=== PATIENT | male | born 1955 | race Caucasian/White ===

== ENCOUNTER 2017-09-01 08:46 | Observation (INO) ==
--- NOTE | 2017-09-01 09:03 | Emergency Department Note ---
Disposition Clinical Impression: Chest pain Qualifiers: Chest pain type: other chest pain Qualified Code(s): R07.89 - Other chest pain Disposition: Admitted As Inpatient Condition: Good Time of Disposition: 11:57 General Adult HPI - General Chief complaint: ED Back Pain/Injury Stated complaint: chest pain Time Seen by Provider: 09/01/17 08:55 Source: patient, EMS Mode of arrival: EMS Limitations: no limitations Nursing Notes Reviewed: Yes Vital Signs Reviewed: Yes - History of Present Illness HPI Narrative: 62-year-old male, Beata the emergency department with complaint of back pain with radiation to the left chest. He had associated diaphoresis. The patient states he woke up with this pain this morning. It has not gotten worse with the state patient states that while he was working just became concerned about after talking to the platelet nurse. They performed an EKG which revealed normal sinus rhythm. At that time the patient was administered 325 mg aspirin and was attempted to give nitroglycerin but he refused. The patient has no previous history of PR, hypertension. No previous cardiac stents or cardiac catheter. The patient denies any other complaints at this time. He is resting comfortably in the room. The patient does have a pleuritic type chest pain but states it hurts worse with taking a deep breath. Pain Scale: 5 - Related Data Home Medications Medication Instructions Recorded Confirmed Ezetimibe/Simvastatin [Vytorin 1 tab PO HS 09/01/17 09/01/17 10-10 mg Tablet] Allergies Allergy/AdvReac Type Severity Reaction Status Date / Time Sulfa (Sulfonamide Allergy Rash Verified 09/01/17 13:30 Antibiotics) morphine AdvReac Agitated Verified 09/01/17 13:30 All systems ED: reviewed and negative except as stated. Constitutional: Denies: fever, chills, weakness ENT ED: Denies: congestion Cardiovascular: Reports: chest pain. Denies: dyspnea on exertion, edema, syncope Respiratory: Denies: dyspnea Gastrointestinal: Denies: abdominal pain, nausea, vomiting Genitourinary: Denies: urgency, dysuria Musculoskeletal: Reports: back pain. Denies: neck pain, arthralgia, myalgia Integumentary: Denies: rash Neurological: Denies: headache, weakness, numbness, paresthesias Past Medical History - Past Medical History Attestation: Yes The following information was validated with the patient. Source: patient Medical history: Reports: GERD, hyperlipidemia, kidney stones Surgical history: Reports: cholecystectomy, other Psychiatric history: Reports: no psych history - Social History Smoking Status: Former smoker Smokeless Tobacco Status: No Alcohol use: Reports: none Drug use: Reports: none Physical Exam - General Limitations: no limitations General appearance: alert, in no apparent distress - Head Head exam: atraumatic, normocephalic, normal inspection - Eye Eye exam: Present: normal appearance, PERRL, EOMI - ENT ENT exam: normal exam, normal oropharynx, mucous membranes moist - Neck Neck exam: Present: normal inspection, full ROM, trachea midline - Chest Chest inspection: Present: normal inspection, symmetric chest wall rise - Respiratory Respiratory exam: Present: normal lung sounds bilaterally - Cardiovascular Cardiovascular exam: Present: regular rate, normal rhythm, normal heart sounds - Abdominal Exam Abdominal exam: Present: soft, Non-Tender. Absent: tenderness, distention, guarding, rebound, rigidity - Extremities Exam Extremities exam: Present: normal inspection, full ROM. Absent: tenderness, pedal edema - Back Exam Back exam: Present: normal inspection, full ROM. Absent: tenderness - Neurological Exam Neurological exam: Present: alert, oriented X3 - Skin Skin exam: Present: warm, dry, intact, normal color Course Vital Signs Temperature 97.6 F 09/01/17 08:48 Pulse Rate 71 09/01/17 08:48 Respiratory Rate 16 09/01/17 08:48 Blood Pressure 181/111 09/01/17 08:48 O2 Sat by Pulse Oximetry 95 09/01/17 08:48 Temperature 97.6 F 09/01/17 08:48 Pulse Rate 64 09/01/17 11:36 Respiratory Rate 13 09/01/17 13:38 Blood Pressure 153/92 09/01/17 13:38 O2 Sat by Pulse Oximetry 96 09/01/17 11:36 Oxygen Delivery Oxygen Delivery Room Air Medical Decision Making - MDM Narrative Medical decision making narrative: Patient's workup in the emergency department demonstrates no acute process. Given the patient's symptoms as well as negative workup we will admit the patient to the hospital to likely trending troponins. The patient was made aware and agrees to plan. No further questions or concerns. CTA of the patient 's chest abdomen pelvis demonstrates no acute process. Patient's troponin is negative and EKG demonstrates no changes that are noted. Patient has mild discomfort at this time. We will admit the patient at this time. Accepted by Dr. Nicole. - Lab Data Lab results reviewed: Yes I reviewed the patient's lab results. Result diagrams: 09/01/17 09:03 09/01/17 09:03 Lab Results 09/01/17 09/01/17 09/01/17 Range/Units 09:03 09:03 09:03 WBC 6.7 (4.3-11.1) K/mcL RBC 5.19 (4.19-5.50) M/mcL Hgb 15.1 (12.9-16.9) g/dL Hct 44.8 (37.5-50.1) % MCV 86.3 (83.0-100.0) fL MCH 29.1 (28.0-33.3) pg MCHC 33.7 (31.6-35.5) g/dL RDW 13.2 (11.5-14.5) % Plt Count 262 (140-400) K/mcL MPV 9.8 (9.4-12.4) fL Immature Gran % 0.3 (0-4) % Seg Neutrophils % 63.7 % Lymphocytes % 23.3 % Monocytes % 9.2 % Eosinophils % 2.2 % Basophils % 1.3 % Neutrophils # 4.3 (1.6-8.9) K/mcL Lymphocytes # 1.6 (0.6-4.6) K/mcL Monocytes # 0.6 (0.0-1.3) K/mcL Eosinophils # 0.2 (0.0-0.6) K/mcL Basophils # 0.1 (0.0-0.2) K/mcL APTT 32.2 (26.0-36.0) Seconds D-Dimer 378 (0-500) ng/mLFEU Sodium 138 (136-145) mEq/L Potassium 3.9 (3.5-5.1) mEq/L Chloride 106 (98-107) mEq/L Carbon Dioxide 23 (23-29) mEq/L BUN 18 (8-23) mg/dL Creatinine 0.98 (0.70-1.30) mg/dL Est GFR ( Amer) > 60 (> 60) Est GFR (Non-Af Amer) > 60 (> 60) BUN/Creatinine Ratio 18 (6-26) Glucose 96 (70-105) mg/dL Calculated Osmolality 288 (280-300) Calcium 9.7 (8.6-10.3) mg/dL Troponin I < 0.03 (< 0.04) ng/mL - Radiology Data Radiology results reviewed: Yes I reviewed the patient's radiology results. Chest X-Ray 09/01/17 08:55 IMPRESSION: No acute cardiopulmonary disease. D/ / Mann Burch MD / Mann Burch MD Interpreting Provider: Mann Burch MD Chest CTA 09/01/17 09:31 IMPRESSION: No acute abnormality in the chest, abdomen or pelvis. No aortic dissection. D/ / Pedro Cook MD / Pedro Cook MD Interpreting Provider: Pedro Cook MD Abdomen/Pelvis CTA 09/01/17 09:53 IMPRESSION: No acute abnormality in the chest, abdomen or pelvis. No aortic dissection. D/ / Pedro Cook MD / Pedro Cook MD Interpreting Provider: Pedro Cook MD - EKG Data EKG #1 EKG attestation: Yes I reviewed and interpreted this EKG. EKG results narrative: Heart rate 71 bpm. Normal sinus rhythm. No ST elevation or ST depression noted. EKG similar appearance EKG from 04/13/2004. No acute changes noted.
[2017-09-01 09:14] LABS: Basophils # 0.1 K/mcL (0.0-0.2); Basophils % 1.3 %; Eosinophils # 0.2 K/mcL (0.0-0.6); Eosinophils % 2.2 %; Hematocrit 44.8 % (37.5-50.1); Hemoglobin 15.1 g/dL (12.9-16.9); Immature Granulocytes % 0.3 % (0-4); Lymphocytes # 1.6 K/mcL (0.6-4.6); Lymphocytes % 23.3 %; Mean Corpuscular HGB Conc 33.7 g/dL (31.6-35.5); Mean Corpuscular Hemoglobin 29.1 pg (28.0-33.3); Mean Corpuscular Volume 86.3 fL (83.0-100.0); Mean Platelet Volume 9.8 fL (9.4-12.4); Monocytes # 0.6 K/mcL (0.0-1.3); Monocytes % 9.2 %; Neutrophils # 4.3 K/mcL (1.6-8.9); Platelet Count 262 K/mcL (140-400); Red Blood Count 5.19 M/mcL (4.19-5.50); Red Cell Distribution Width 13.2 % (11.5-14.5); Segmented Neutrophils % 63.7 %
[2017-09-01] MEDS ORDERED: Isovue-370 500 ML INFUS..BTL IV ONE ×2 (09:31→09:53)
--- NOTE | 2017-09-01 09:31 | Emergency Department Note ---
Disposition Clinical Impression: Chest pain Qualifiers: Chest pain type: unspecified Qualified Code(s): R07.9 - Chest pain, unspecified Disposition: Admitted As Inpatient Condition: Undetermined Referrals: Natasha Sylvester MD [Primary Care Provider] - Forms: ED Satisfaction Letter General Adult HPI - General Chief complaint: ED Back Pain/Injury Stated complaint: back pain, CP Time Seen by Provider: 09/01/17 08:55 Source: patient, EMS Mode of arrival: EMS Limitations: no limitations - History of Present Illness Pain Scale: 5 - Related Data Home Medications Medication Instructions Recorded Confirmed Ascorbate Calcium [Vitamin C] 500 mg PO DAILY 06/05/16 06/05/16 Duloxetine HCl [Cymbalta] 60 mg PO DAILY 06/05/16 06/05/16 Ezetimibe/Simvastatin [Vytorin 1 each PO DAILY 06/05/16 06/05/16 10-10 mg Tablet] Multivit-Min/FA/Lycopen/Lutein 1 each PO DAILY 06/05/16 06/05/16 [Centrum Silver Men Tablet] Previous Rx's Medication Instructions Recorded Docusate [Colace] 100 mg PO BID #60 capsule 06/05/16 HYDROmorphone [Dilaudid] 2 mg PO Q4HR PRN #20 tablet 06/05/16 Ketorolac [Toradol] 10 mg PO Q6HR #20 tablet 06/05/16 Allergies Allergy/AdvReac Type Severity Reaction Status Date / Time morphine Allergy Agitated Verified 06/05/16 10:53 Sulfa (Sulfonamide Allergy Rash Verified 06/05/16 10:53 Antibiotics) Constitutional: Denies: fever, chills, weakness ENT ED: Denies: congestion Cardiovascular: Reports: chest pain. Denies: dyspnea on exertion, edema, syncope Respiratory: Denies: dyspnea Gastrointestinal: Denies: abdominal pain, nausea, vomiting Genitourinary: Denies: urgency, dysuria Musculoskeletal: Reports: back pain. Denies: neck pain, arthralgia, myalgia Integumentary: Denies: rash Neurological: Denies: headache, weakness, numbness, paresthesias Past Medical History - Past Medical History Medical history: Reports: GERD, hyperlipidemia, kidney stones Surgical history: Reports: cholecystectomy, other Psychiatric history: Reports: no psych history - Social History Smoking Status: Former smoker Smokeless Tobacco Status: No Alcohol use: Reports: none Drug use: Reports: none Physical Exam - General Limitations: no limitations General appearance: alert, in no apparent distress Course Vital Signs Temperature 97.6 F 09/01/17 08:48 Pulse Rate 71 09/01/17 08:48 Respiratory Rate 16 09/01/17 08:48 Blood Pressure 181/111 09/01/17 08:48 O2 Sat by Pulse Oximetry 95 09/01/17 08:48 Temperature 97.6 F 09/01/17 08:48 Pulse Rate 64 09/01/17 11:36 Respiratory Rate 16 09/01/17 11:36 Blood Pressure 156/97 09/01/17 11:36 O2 Sat by Pulse Oximetry 96 09/01/17 11:36 Oxygen Delivery Oxygen Delivery Room Air Medical Decision Making - Lab Data Result diagrams: 09/01/17 09:03 09/01/17 09:03 Lab Results 09/01/17 09/01/17 09/01/17 Range/Units 09:03 09:03 09:03 WBC 6.7 (4.3-11.1) K/mcL RBC 5.19 (4.19-5.50) M/mcL Hgb 15.1 (12.9-16.9) g/dL Hct 44.8 (37.5-50.1) % MCV 86.3 (83.0-100.0) fL MCH 29.1 (28.0-33.3) pg MCHC 33.7 (31.6-35.5) g/dL RDW 13.2 (11.5-14.5) % Plt Count 262 (140-400) K/mcL MPV 9.8 (9.4-12.4) fL Immature Gran % 0.3 (0-4) % Seg Neutrophils % 63.7 % Lymphocytes % 23.3 % Monocytes % 9.2 % Eosinophils % 2.2 % Basophils % 1.3 % Neutrophils # 4.3 (1.6-8.9) K/mcL Lymphocytes # 1.6 (0.6-4.6) K/mcL Monocytes # 0.6 (0.0-1.3) K/mcL Eosinophils # 0.2 (0.0-0.6) K/mcL Basophils # 0.1 (0.0-0.2) K/mcL APTT 32.2 (26.0-36.0) Seconds D-Dimer 378 (0-500) ng/mLFEU Sodium 138 (136-145) mEq/L Potassium 3.9 (3.5-5.1) mEq/L Chloride 106 (98-107) mEq/L Carbon Dioxide 23 (23-29) mEq/L BUN 18 (8-23) mg/dL Creatinine 0.98 (0.70-1.30) mg/dL Est GFR ( Amer) > 60 (> 60) Est GFR (Non-Af Amer) > 60 (> 60) BUN/Creatinine Ratio 18 (6-26) Glucose 96 (70-105) mg/dL Calculated Osmolality 288 (280-300) Calcium 9.7 (8.6-10.3) mg/dL Troponin I < 0.03 (< 0.04) ng/mL Attestation Statement - Attestation Attestation: I examined this patient and my medical decision-making was reviewed with the Resident Physician. I agree with the documented findings, disposition and treatment plan as described except to the extent set forth below. Patient to the ED wanting a pain in his back. Pain is in left side of his back and wrapping around his side and into the front of his chest. Started this morning and has worsened. No history of similar pain. Not relieved by anything. No fever. No cough not short of breath. On examination he is uncomfortable leaning to the right side. Lungs clear. Plan. Cardiac workup. Workup unremarkable. Troponin negative. CTA negative for dissection or PE. We will admit for further cardiac workup. Chest X-Ray 09/01/17 08:55 IMPRESSION: No acute cardiopulmonary disease. D/ / Mann Burch MD / Mann Burch MD Interpreting Provider: Mann Burch MD Chest CTA 09/01/17 09:31 IMPRESSION: No acute abnormality in the chest, abdomen or pelvis. No aortic dissection. D/ / Pedro Cook MD / Pedro Cook MD Interpreting Provider: Pedro Cook MD Abdomen/Pelvis CTA 09/01/17 09:53
[2017-09-01 09:32] LABS: Activated Partial Thrombo Time 32.2 Seconds (26.0-36.0)
[2017-09-01 09:35] LABS: Troponin I < 0.03 ng/mL (< 0.04)
[2017-09-01 09:40] LABS: BUN/Creatinine Ratio 18 (6-26); Blood Urea Nitrogen 18 mg/dL (8-23); Calcium 9.7 mg/dL (8.6-10.3); Carbon Dioxide 23 mEq/L (23-29); Chloride 106 mEq/L (98-107); Glucose 96 mg/dL (70-105); Osmolality,Calculated 288 (280-300); Potassium 3.9 mEq/L (3.5-5.1); Sodium 138 mEq/L (136-145); eGFR For African Americans > 60 (> 60); eGFR For Non-African Americans > 60 (> 60)
[2017-09-01] MEDS ORDERED: *HR* FentaNYL (PF) 100 MCG/2 ML VIAL IVP ONE (11:12)
[2017-09-01] MEDS ORDERED: *HR* Labetalol 100 MG/20 ML MDV IVP ONE (11:14)
[2017-09-01] MEDS ORDERED: Ondansetron 4 MG/2 ML VIAL IVP PRN (13:25)
[2017-09-01] MEDS ORDERED: Nitroglycerin 0.4 MG TAB.SUBL SL PRN (13:25)
[2017-09-01] MEDS ORDERED: Acetaminophen 325 MG TABLET PO PRN (13:29)
[2017-09-01] MEDS ORDERED: Ibuprofen 400 MG TABLET PO PRN (13:29)
[2017-09-01] MEDS ORDERED: Naloxone 0.4 MG/ML INJ IVP PRN (13:29)
[2017-09-01] MEDS ORDERED: *HR* HYDROcodone/Acet 5/325 mg TABLET PO PRN (13:29)
--- NOTE | 2017-09-01 13:35 | Internal Med History&Physical ---
Date of Encounter: 09/01/17 Time of Encounter: 13:07 Internal Medicine - H&P: HPI Chief complaint: "Back pain and left chest pain" Admitted From: Emergency Dept Plans for Post Hospital Care: Home History of present illness: Mr. Rivera is a 62 year old male who presented to ED today with back pain radiating to his left chest. He states that he noticed pain this AM. He went to work, and pain would not go away. Pain not worse with exertion. Pain is located in left lower back and radiates to left chest. Twisting and turning his chest, and palpation of this chest wall, make the pain worse. Deep breaths also make the pain worse. He denies fever, chills, diaphoresis, nausea, vomiting, diarrhea, shortness of breath, abdominal pain, changes in bladder, or changes in bowels. He denies any other issues at this time. He states that he had a normal stress test many years ago. His only PMH is HLD, for which he takes vytorin. In the ED, EKG was NSR. Initial troponin was WNL. CXR showed no acute cardiopulmonary process. Pain was improved with fentanyl. Past Med Surg Social Fam HX - Past Medical History Attestation: Yes The following information was validated with the patient. Source: patient Medical history: GERD, hyperlipidemia, kidney stones Psychiatric history: no psych history - Past Surgical History Surgical History: cholecystectomy, other Additional surgical history: hernia repair, lithotrispy - Social History Smoking Status: Former smoker Smokeless Tobacco Status: No Alcohol use: none Drug use: none - Additional Family History Additional family history: No significant family history per patient. Internal Medicine - H&P: Meds Ezetimibe/Simvastatin [Vytorin 10-10 mg Tablet] 1 tab PO HS 09/01/17 [History] 3 Allergy/AdvReac Type Severity Reaction Status Date / Time Sulfa (Sulfonamide Allergy Rash Verified 09/01/17 13:30 Antibiotics) morphine AdvReac Agitated Verified 09/01/17 13:30 All Systems PM: A 10-system review of systems was performed and is negative for pertinent findings except as documented above in the HPI. - Constitutional Vitals: Temp Pulse Resp BP Pulse Ox 97.6 F 64 16 156/97 96 09/01/17 08:48 09/01/17 11:36 09/01/17 11:36 09/01/17 11:36 09/01/17 11:36 General appearance: Present: cooperative, A&O X 3, pleasant, no acute distress, obese, answers questions appropriately - Head Head exam: Present: atraumatic, normal inspection, normocephalic - Eye Eye exam: Present: EOMI, PERRL. Absent: conjunctival injection, nystagmus, scleral icterus - ENT ENT exam: Present: mucous membranes moist, normal external ear exam, normal oropharynx - Neck Neck exam general surgery: Present: supple, trachea midline. Absent: lymphadenopathy, tenderness, thyromegaly - Respiratory Respiratory exam: Present: CTAB. Absent: accessory muscle use, rales, rhonchi, wheezes Additional comments: Normal WOB - Cardiovascular Cardiovascular exam: Present: RRR, +S1, +S2. Absent: diastolic murmur, gallop, rubs, systolic murmur Additional comments: No BLE edema - GI/Abdominal GI/Abdominal exam: Present: normal bowel sounds, soft. Absent: distended, hepatomegaly, mass, splenomegaly, tenderness - Neurological Exam Neurological exam: Present: alert, CN II-XII intact, oriented X3, no focal deficits, strengths equal and symetr throughout. Absent: motor sensory deficit , facial droop, speech deficit - Psychiatric Psychiatric exam: Present: normal affect, normal mood. Absent: agitated, anxious, depressed - Skin Skin exam: Present: dry, intact, warm. Absent: cyanosis, rash Internal Med - H&P Results - Labs CBC & Chem 7: 09/01/17 09:03 09/01/17 09:03 - VTE Reasons for not Prescribing Prophylaxis: Treatment not Indicated - Low risk for VTE Documentation of Mechanical Device: Intermittent pneumatic compression device - Assessment and plan (1) Chest pain Current Visit: Yes Status: Acute Assessment and plan: Seems musculoskeletal based on history and my examination. Admit for observation with telemetry. Trend troponin x 3. Obtain ECHO in AM. Continue supplemental O2 and PRN nitro. Continue tylenol, ibuprofen, and norco PRN pain. Continue home vytorin. Manage HTN as per below. I discussed option of getting stress test with patient given risk factors. He states that he had a normal stress test several years ago, and he would like to defer at this time. I advised him that we can discuss again in AM after further ACS workup complete. Qualifiers: Chest pain type: other chest pain Qualified Code(s): R07.89 - Other chest pain; R07.8 - Other chest pain (2) Acute costochondritis Current Visit: Yes Status: Acute Assessment and plan: Likely explanation of chest and back pain. Pain control as per above. (3) Hypertension Current Visit: Yes Status: Acute Assessment and plan: Given beta elda in ED. He states that he has no diagnosis of HTN. Will use hydralazine IV PRN HTN. Qualifiers: Hypertension type: essential hypertension Qualified Code(s): I10 - Essential (primary) hypertension (4) Hyperlipidemia Current Visit: Yes Status: Acute Assessment and plan: Continue home vytorin. Qualifiers: Hyperlipidemia type: mixed hyperlipidemia Qualified Code(s): E78.2 - Mixed hyperlipidemia (5) DVT prophylaxis Current Visit: Yes Status: Acute Assessment and plan: Low risk. Ambulate and SCDs. - Time Spent With Patient Total time spent is greater than 50% in coordination of care (as documented) at patient's floor/unit and/or counseling patient: less than 15 minutes
[2017-09-01] MEDS: Aspirin 81 MG TAB.CHEW PO SCH (14:57)
[2017-09-01] MEDS ORDERED: SIMVASTATIN PO SCH (21:00)
[2017-09-01] MEDS ORDERED: EZETIMIBE PO SCH (21:00)
[2017-09-01 22:14] LABS: Amphetamine Screen,Urine Negative ng/mL (Cutoff=1000); Barbiturate Screen,Urine Negative ng/mL (Cutoff=200); Benzodiazepines Screen,Urine Negative ng/mL (Cutoff=200); Cannabinoid Screen,Urine Negative ng/mL (Cutoff = 50); Cocaine Screen,Urine Negative ng/mL (Cutoff= 300); Opiate Screen,Urine Negative ng/mL (Cutoff=300); Phencyclidine Screen,Urine Negative ng/mL (Cutoff=25)
[2017-09-02 03:25] LABS: Basophils # 0.1 K/mcL (0.0-0.2); Eosinophils # 0.1 K/mcL (0.0-0.6); Eosinophils % 1.9 %; Hematocrit 41.9 % (37.5-50.1); Hemoglobin 14.1 g/dL (12.9-16.9); Immature Granulocytes % 0.1 % (0-4); Lymphocytes # 1.5 K/mcL (0.6-4.6); Lymphocytes % 22.2 %; Mean Corpuscular HGB Conc 33.7 g/dL (31.6-35.5); Mean Platelet Volume 9.9 fL (9.4-12.4); Monocytes # 0.6 K/mcL (0.0-1.3); Monocytes % 9.4 %; Neutrophils # 4.4 K/mcL (1.6-8.9); Platelet Count 226 K/mcL (140-400); Red Blood Count 4.87 M/mcL (4.19-5.50); Red Cell Distribution Width 13.3 % (11.5-14.5); Segmented Neutrophils % 65.4 %
[2017-09-02 03:32] LABS: Prothrombin Time 11.2 Seconds (9.4-12.1)
[2017-09-02 03:44] LABS: Chol/HDL Ratio 5.9 (0-4.9)
[2017-09-02 03:45] LABS: Alanine Aminotransferase 21 Units/L (7-52); Albumin 4.1 g/dL (3.5-5.7); Albumin/Globulin Ratio 1.6 (1.1-2.2); Alkaline Phosphatase 63 Units/L (34-104); Aspartate Amino Transferase 16 Units/L (13-39); BUN/Creatinine Ratio 17 (6-26); Bilirubin,Total 0.5 mg/dL (0.3-1.0); Blood Urea Nitrogen 17 mg/dL (8-23); Calcium 9.1 mg/dL (8.6-10.3); Carbon Dioxide 24 mEq/L (23-29); Chloride 106 mEq/L (98-107); Globulin 2.5 g/dL (2.4-3.5); Glucose 99 mg/dL (70-105); Magnesium 2.3 mg/dL (1.6-2.6); Osmolality,Calculated 288 (280-300); Potassium 3.9 mEq/L (3.5-5.1); Sodium 138 mEq/L (136-145); Total Protein 6.6 g/dL (6.4-8.9); eGFR For African Americans > 60 (> 60); eGFR For Non-African Americans > 60 (> 60)
[2017-09-02 07:12] VITALS: BP 171/90
[2017-09-02] MEDS: Aspirin 81 MG TAB.CHEW PO SCH (08:47)
--- NOTE | 2017-09-02 09:49 | Discharge Summary ---
- NOTES TO OUTPATIENT PROVIDER Notes to Outpatient Provider: Patient hospitalized here for chest pain. Recommended stress test but he wished to get this done as outpatient. Troponins were negative. Underwent 2-D echocardiogram which showed normal ejection fraction but patient does have moderate left ventricular diastolic dysfunction. Likely related to chronic hypertension. His blood pressure has been elevated here and has now been placed on lisinopril. He will follow up with his primary care provider for further management. Date of Encounter: 09/02/17 Time of Encounter: 09:46 - Discharge Diagnosis (1) Chest pain Priority: Primary Status: Acute Qualifiers: Chest pain type: other chest pain Qualified Code(s): R07.89 - Other chest pain; R07.8 - Other chest pain (2) Acute costochondritis Priority: Secondary Status: Acute (3) Hypertension Priority: Secondary Status: Acute Qualifiers: Hypertension type: essential hypertension Qualified Code(s): I10 - Essential (primary) hypertension (4) Hyperlipidemia Priority: Secondary Status: Acute Qualifiers: Hyperlipidemia type: mixed hyperlipidemia Qualified Code(s): E78.2 - Mixed hyperlipidemia (5) Ventricular diastolic dysfunction determined by echocardiography Priority: Secondary Status: Chronic (6) DVT prophylaxis Priority: Secondary Status: Acute Hospital course: Mr. Rivera is a 62 year old male Patient hospitalized here for chest pain. He does not have any prior history of coronary artery disease. His troponins were negative. He does not take any medications. He was recommended stress test but he wished to get this done as outpatient. Underwent 2-D echocardiogram which showed normal ejection fraction but patient does have moderate left ventricular diastolic dysfunction. Likely related to chronic hypertension. His blood pressure has been elevated here and he has now been placed on lisinopril. He will follow up with his primary care provider for further management. Discharge discussed with: patient, family - Time Spent with Patient Total time spent providing and/or coordinating discharge services: Less than 30 minutes (25 min) - Discharge Medications Prescriptions: Lisinopril [Zestril] 5 mg PO DAILY #30 tablet Home Medications: Ezetimibe/Simvastatin [Vytorin 10-10 mg Tablet] 1 tab PO HS 09/01/17 [History] Lisinopril [Zestril] 5 mg PO DAILY #30 tablet 09/02/17 [Rx] Allergies/Adverse Reactions: 3 Allergy/AdvReac Type Severity Reaction Status Date / Time Sulfa (Sulfonamide Allergy Rash Verified 09/01/17 13:30 Antibiotics) morphine AdvReac Agitated Verified 09/01/17 13:30 Date of admission: 09/01/17 12:29 Primary care physician: Natasha Sylvester MD Consults: 09/01/17 13:30 Consult to Physical Therapy [CONS] Routine Comment: Evaluate, develop and implement POC Reason for Consult: ACS Ruleout, Chest Wall Pain. Please evaluate and treat. Does patient have active BEDREST order?: No Is patient medically & hemodynamically stable?: Yes Patient assessed for mobility or mobilized this visit?: No 09/01/17 13:31 Consult to Occupational Therapy [CONS] Routine Comment: Evaluate, develop and implement POC Reason for Consult: ACS Ruleout, Chest Wall Pain. Please evaluate and treat. Does patient have active BEDREST order?: No Is patient medically & hemodynamically stable?: Yes Patient assessed for mobility or mobilized this visit?: No 09/01/17 13:32 Consult for Pharmacy Education [CONS] Stat Reason for Consult: Home Medication Reconciliation Call Completed: No Discharging clinician: Savage Trujillo Anticipated date of discharge: 09/02/17 - Constitutional Vitals: Temp Pulse Resp BP Pulse Ox 97.5 F L 63 15 171/90 98 09/02/17 07:08 09/02/17 07:08 09/02/17 07:08 09/02/17 07:08 09/02/17 09:05 General appearance: Present: cooperative, A&O X 3, pleasant, no acute distress, obese, answers questions appropriately - Neck Neck exam general surgery: Present: supple, trachea midline. Absent: lymphadenopathy - Cardiovascular Cardiovascular exam: Present: RRR, +S1, +S2. Absent: diastolic murmur, gallop, rubs, systolic murmur - GI/Abdominal GI/Abdominal exam: Present: normal bowel sounds, soft, no peritoneal signs. Absent: distended, tenderness - Extremities Exam Extremities exam: Present: warm, radial pulses palpable and symmetrical. Absent : calf tenderness, cyanotic, pedal edema - Neurological Exam Neurological exam: Present: CN II-XII intact, oriented X3, no focal deficits. Absent: facial droop, speech deficit - Skin Skin exam: Present: dry, intact - Patient Status Disposition: Home, Self-Care Condition: Good Functional capacity at discharge: independent ambulation Overall status at discharge: patient is progressing back to baseline - Discharge Instructions Instructions: Chest Pain (DC), Chronic Hypertension (DC) Follow Up With: Natasha Sylvester MD [Primary Care Provider] - 09/09/17 10:00 am (in 1-2 weeks) Additional Instructions: Follow-up appointments: If there is not an appointment listed below, please call your physician and schedule a follow-up appointment. If you have congestive heart failure and your symptoms return, make an appointment with your physician. Medication List: Carry an up to date list of medications you are taking at all time. We have given you an updated medication list including any new medications that you have been prescribed. Please provide that list to your primary provider Symptoms: If your condition changes or you experience any of the following symptoms, notify your physician immediately: Unusual or worsening pain, fever, persistent nausea and vomiting, bleeding, increase in swelling (especially in your legs), sudden weight gain, extreme dizziness, chest pain, increased drainage or redness from a wound or incision. Go to the emergency department if you experience a problem with breathing. Weights: If you have a history of swelling or shortness of breath, weigh yourself daily and notify your physician if you have a weight gain of two or more pounds in one day or 5 or more pounds in a week. If you experience any of the warning signs for stroke: Sudden numbness or weakness of the face, arm or leg; especially on one side of the body, sudden confusion, trouble speaking or understanding, sudden trouble seeing in one or both eyes, sudden trouble walking, dizziness, loss of balance or coordination, sudden sever headache with no cause; Call 911 or go to the emergency room. Stroke is a medical emergency. Some risk factors for stroke: Age, cigarette smoking, diabetes, excessive alcohol consumption, family history , high blood pressure, overweight, physical inactivity, prior stroke, heart attack, diagnosis of carotid artery stenosis or other artery disease. If you smoke, STOP: Smoking or tobacco use significantly increases your risk of heart and lung disease. Your chance of disease greatly increases if you continue to smoke. For more information, call the [facility] tobacco quit line for smoking cessation QUIT-NOW ( ) - Diet and Activity Activity: increase activity as tolerated Diet: low fat, low cholesterol, low salt diet - VTE Reasons for not Prescribing Prophylaxis: Treatment not Indicated - Low risk for VTE Documentation of Mechanical Device: Intermittent pneumatic compression device
--- NOTE | 2017-09-05 20:10 | Electrocardiograph Report ---
[address] [address] Test Date: 2017-09-01 Pat Name: Dominik Rivera Department: 103 Room: 3A55 Gender: M Wilton Weaver: : 1955 Requested By: Yamil Meza Order Number: [id number] Reading MD: Mitchell Downey Measurements Intervals [place] Rate: 71 P: 56 GA: 175 QRS: 63 QRSD: 81 T: 69 QT: 373 QTc: 395 Interpretive Statements SINUS RHYTHM Electronically Signed On 09-05-2017 20:08:28 EDT by Mitchell Downey
== END 2017-09-02 10:47 | disposition home or self-care (01) ==
LOC: 3ANU 08:46 → EMEROO 08:46 → SUATTDRO 12:29 → 3ANU 13:53
PROVIDERS: ADMIT Family Medicine; ATTEND Internal Medicine

== ENCOUNTER 2020-05-03 18:08 | Inpatient (IN) ==
[2020-05-03] MEDS ORDERED: Aspirin 81 MG TAB.CHEW PO ONE (18:18)
[2020-05-03] MEDS ORDERED: 0.9 % Sodium Chloride 500 ML IVC ONE (18:18)
[2020-05-03] MEDS ORDERED: Isovue-370 500 ML BOTTLE IVP ONE (18:29)
[2020-05-03 18:54] LABS: Basophils # 0.1 K/mcL (0.0-0.2); Basophils % 1.5 %; Eosinophils # 0.2 K/mcL (0.0-0.6); Eosinophils % 3.6 %; Hematocrit 38.7 % (37.5-50.1); Immature Granulocytes % 0.3 % (0-4); Lymphocytes # 1.8 K/mcL (0.6-4.6); Lymphocytes % 30.1 %; Mean Corpuscular HGB Conc 33.6 g/dL (31.6-35.5); Mean Corpuscular Hemoglobin 29.4 pg (28.0-33.3); Mean Corpuscular Volume 87.6 fL (83.0-100.0); Mean Platelet Volume 9.8 fL (9.4-12.4); Monocytes # 0.6 K/mcL (0.0-1.3); Monocytes % 9.8 %; Neutrophils # 3.2 K/mcL (1.6-8.9); Platelet Count 288 K/mcL (140-400); Red Blood Count 4.42 M/mcL (4.19-5.50); Red Cell Distribution Width 13.5 % (11.5-14.5); Segmented Neutrophils % 54.7 %; White Blood Count 5.8 K/mcL (4.3-11.1)
[2020-05-03 19:18] LABS: BUN/Creatinine Ratio 16 (6-26); Blood Urea Nitrogen 15 mg/dL (8-23); Calcium 9.3 mg/dL (8.6-10.3); Carbon Dioxide 22 mEq/L (23-29); Chloride 108 mEq/L (98-107); Glucose 120 mg/dL (70-105); Osmolality,Calculated 290 (280-300); Potassium 3.7 mEq/L (3.5-5.1); Sodium 139 mEq/L (136-145); Troponin I < 0.03 ng/mL (< 0.04); eGFR For African Americans > 60 (> 60); eGFR For Non-African Americans > 60 (> 60)
[2020-05-03] MEDS ORDERED: Perflutren Lipid Microsphere 1.3 ML in 0.9 % Sodium Chloride 8.7 ML IVP PRN (21:45)
[2020-05-03] MEDS ORDERED: Nitroglycerin 0.4 MG TAB.SUBL SL PRN (22:18)
[2020-05-03] MEDS ORDERED: Ondansetron 4 MG/2 ML VIAL IVP PRN (22:19)
[2020-05-03] MEDS ORDERED: Naloxone 0.4 MG/ML INJ IVP PRN (22:19)
[2020-05-04 01:08] LABS: Hematocrit 39.3 % (37.5-50.1); Hemoglobin 12.9 g/dL (12.9-16.9); Mean Corpuscular HGB Conc 32.8 g/dL (31.6-35.5); Mean Corpuscular Volume 88.3 fL (83.0-100.0); Mean Platelet Volume 9.9 fL (9.4-12.4); Platelet Count 262 K/mcL (140-400); Red Blood Count 4.45 M/mcL (4.19-5.50); Red Cell Distribution Width 13.7 % (11.5-14.5); White Blood Count 5.6 K/mcL (4.3-11.1)
[2020-05-04 01:12] LABS: INR 1.1; Prothrombin Time 12.4 Seconds (9.4-12.1)
[2020-05-04 01:13] LABS: Activated Partial Thrombo Time 28.7 Seconds (26.0-36.0)
[2020-05-04 01:27] LABS: BUN/Creatinine Ratio 16 (6-26); Blood Urea Nitrogen 14 mg/dL (8-23); Calcium 9.2 mg/dL (8.6-10.3); Carbon Dioxide 24 mEq/L (23-29); Chloride 107 mEq/L (98-107); Glucose 102 mg/dL (70-105); Magnesium 2.3 mg/dL (1.6-2.6); Osmolality,Calculated 291 (280-300); Potassium 3.8 mEq/L (3.5-5.1); Sodium 140 mEq/L (136-145); eGFR For African Americans > 60 (> 60); eGFR For Non-African Americans > 60 (> 60)
[2020-05-04 01:29] LABS: Chol/HDL Ratio 4.3 (0-4.9); Cholesterol 143 mg/dL (< 200); HDL Cholesterol 33 mg/dL (40-59); LDL Cholesterol,Calculated 81 mg/dL (< 100); Triglycerides 147 mg/dL (< 150); Troponin I < 0.03 ng/mL (< 0.04)
[2020-05-04 02:58] LABS: Estimated Average Glucose 134 mg/dl; Hemoglobin A1C 6.3 %
[2020-05-04] MEDS ORDERED: Aspirin Enteric Coated 81 MG Tablet PO SCH (09:00)
[2020-05-04 12:13] VITALS: BP 157/80
[2020-05-04] MEDS ORDERED: Metoprolol XL (24 HR) Succ 25 MG TAB.ER.24H PO SCH (13:15)
[2020-05-04] MEDS ORDERED: *HR* Heparin 5,000 UNIT/ML VIAL SQ SCH (18:00)
== END 2020-05-04 18:30 | disposition home or self-care (01) | DRG 125 ==
LOC: EMEROOARM 18:08 → 3BNU 18:08 → SUATTDRO 20:30 → 3BNU 21:42
PROVIDERS: ADMIT Student in an Organized Health Care Education/Training Program; ATTEND Family Medicine

== ENCOUNTER 2020-06-05 06:07 | Inpatient (IN) ==
[2020-06-05] MEDS ORDERED: CeFAZolin Syr 2,000MG/20 ML 2,000 MG/20 ML SYRINGE IVPB ONE (06:26)
[2020-06-05] MEDS ORDERED: Dexamethasone 4 MG/ML VIAL ONE (06:55)
[2020-06-05] MEDS ORDERED: Lidocaine -MPF 2% 2 ML VIAL ONE (06:55)
[2020-06-05] MEDS ORDERED: Ondansetron 4 MG/2 ML VIAL ONE (06:55)
[2020-06-05] MEDS ORDERED: *HR* Propofol 200 MG/20 ML VIAL IVP ONE ×2 (06:55→10:43)
[2020-06-05] MEDS ORDERED: Lidocaine -MPF 1% 5 ML AMPUL ONE (06:55)
[2020-06-05] MEDS ORDERED: *HR* Rocuronium Bromide 50 MG/5 ML VIAL ONE ×2 (06:55→09:20)
[2020-06-05] MEDS ORDERED: *HR* Remifentanil 1 MG VIAL IVP ONE ×2 (06:56→09:09)
[2020-06-05] MEDS ORDERED: *HR* FentaNYL (PF) 100 MCG/2 ML VIAL ONE (06:56)
[2020-06-05] MEDS ORDERED: Vancomycin 1,500 MG/265 ML IV.SOLN IVPB ONE ×2 (07:00→20:00)
[2020-06-05] MEDS ORDERED: *HR* Phenylephrine 10 MG/ML VIAL ONE (07:05)
[2020-06-05] MEDS ORDERED: *HR* OxyCODONE/APAP 5/325 TABLET PO PRN (07:10)
[2020-06-05] MEDS ORDERED: Ondansetron 4 MG/2 ML VIAL IVP PRN ×2 (07:10→11:45)
[2020-06-05] MEDS ORDERED: *HR* HYDROmorphone (PF) 1 MG/ML SYRINGE IVP PRN (07:10)
[2020-06-05] MEDS ORDERED: Protamine Sulfate 50 MG/5 ML VIAL IVP ONE (07:14)
[2020-06-05] MEDS ORDERED: Bupivacaine-MPF 0.25% 10 ML VIAL ONE (07:15)
[2020-06-05] MEDS ORDERED: Heparin 1,000 UNITS/500 mL 500 ML ONE (07:15)
[2020-06-05] MEDS ORDERED: *HR* Midazolam HCl 2 MG/2 ML VIAL ONE (07:37)
[2020-06-05] MEDS: Ringers Solution, Lactated 1,000 ML IVC SCH ×2 (07:43→11:15)
[2020-06-05] MEDS ORDERED: Vancomycin 1,000 MG, Sodium Chloride IRRigation 1,000 ML IR ONE (07:45)
[2020-06-05] MEDS ORDERED: *HR* Heparin 5,000 UNIT/ML VIAL ONE (09:14)
[2020-06-05] MEDS ORDERED: 0.9 % Sodium Chloride 1,000 ML IVC SCH (11:45)
[2020-06-05] MEDS ORDERED: *HR* HYDROcodone/Acet 5/325 mg TABLET PO PRN (11:45)
[2020-06-05] MEDS ORDERED: *HR* OxyCODONE Immed Rel 5 MG TABLET PO PRN (11:45)
[2020-06-05] MEDS ORDERED: Acetaminophen 325 MG TABLET PO PRN (11:45)
[2020-06-05] MEDS ORDERED: *HR* Labetalol 20 MG/4 ML SYRINGE IVP PRN (11:45)
[2020-06-05] MEDS ORDERED: Naloxone 0.4 MG/ML INJ IVP PRN (11:45)
[2020-06-05] MEDS: *HR* Metoprolol 5 MG/5 ML VIAL IVP SCH ×3 (12:16→23:36)
[2020-06-05] MEDS: CeFAZolin 2 GM/120 ML BAG IVPB SCH ×2 (13:53→22:00)
[2020-06-06] MEDS: *HR* Metoprolol 5 MG/5 ML VIAL IVP SCH (05:35)
[2020-06-06] MEDS ORDERED: *HR* Heparin 5,000 UNIT/ML VIAL SQ SCH ×2 (06:00)
[2020-06-06 07:21] VITALS: BP 106/60
[2020-06-06] MEDS ORDERED: Aspirin Enteric Coated 81 MG Tablet PO SCH (09:00)
[2020-06-06] MEDS ORDERED: Metoprolol XL (24 HR) Succ 25 MG TAB.ER.24H PO SCH (09:00)
== END 2020-06-06 10:40 | disposition home or self-care (01) | DRG 39 ==
LOC: SAMDAY 06:07 → 2NNU 11:44
PROVIDERS: ADMIT Surgery; ATTEND Surgery